=== PATIENT | female | born 1960 ===

== ENCOUNTER 2017-08-10 20:57 | Emergency (ER) | payer SELFPAY ==
[2017-08-10] MEDS ORDERED: Sodium Chloride 0.9% 1,000 ML IV ONE (21:26)
[2017-08-10 21:28] LABS: RBC URINE 4 /hpf (0-3); URINE BACTERIA MANY (<OCC); URINE BILIRUBIN NEGATIVE (NEGATIVE); URINE COLOR Yellow (YELLOW); URINE GLUCOSE (UA) NORMAL (Normal); URINE KETONE NEGATIVE (NEGATIVE); URINE LEUKOCYTE ESTERASE 3+ Leu/uL (Negative); URINE PROTEIN NEGATIVE (NEGATIVE); URINE UROBILINOGEN NORMAL mg/dL (0.2-1.0); WBC URINE 41 /hpf (0-5)
[2017-08-10 21:29] LABS: URINE BLOOD 1+ (NEGATIVE)
[2017-08-10] MEDS ORDERED: Sodium Chloride 0.9% 1,000 ML ONE (21:32)
[2017-08-10 21:47] LABS: BASO % 0.3 % (0.0-2.0); HEMATOCRIT 44.4 % (34.0-47.0); LYMPH # 2.1 K/uL (1.0-4.3); LYMPH % 12.6 % (20.0-40.0); MEAN CELL VOLUME 87.4 fL (81.0-99.0); MEAN CORPUSCULAR HEMOGLOBIN 28.3 pg (27.0-31.0); MEAN CORPUSCULAR HGB CONC 32.3 g/dL (33.0-37.0); MEAN PLATELET VOLUME 9.4 fL (7.2-11.7); MONO # 1.1 K/uL (0.0-0.8); RED CELL DISTRIBUTION WIDTH 13.8 % (11.5-14.5); WHITE BLOOD COUNT 16.3 K/uL (4.8-10.8)
[2017-08-10 21:51] LABS: CHLORIDE 102 mmol/L (98-107); SODIUM 138 mmol/L (132-148)
[2017-08-10 21:52] LABS: POTASSIUM 4.2 mmol/L (3.6-5.2)
[2017-08-10 21:54] LABS: ALB/GLOB RATIO 1.2 (1.0-2.1); ALKALINE PHOSPHATASE 71 U/L (38-126); ALT/SGPT 42 U/L (9-52); AST/SGOT 34 U/L (14-36); BILIRUBIN,TOTAL 1.6 mg/dL (0.2-1.3); BLOOD UREA NITROGEN 10 mg/dL (7-17); CARBON DIOXIDE 21 mmol/L (22-30); GFR AFRICAN-AMERICAN > 60; GLUCOSE,RANDOM 103 mg/dL (65-105)
[2017-08-10] MEDS ORDERED: cefTRIAXone IV 1 gm in Dextros 50 ML IVPB STA (23:03)
[2017-08-10] MEDS ORDERED: cefTRIAXone IV 1 gm in Dextros 50 ML IVPB ONE (23:14)
--- NOTE | 2017-08-10 23:29 | C.PDOC ---
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: language barrier Onset/Duration Of Symptoms: Days (1) Current Symptoms Are (Timing): Still Present Severity: Moderate Location Of Pain/Discomfort: Diffuse Quality Of Discomfort: Unable To Describe, "Pain" Associated Symptoms: Fever (subjective), Nausea, Other (Headache) Exacerbating Factors: None Alleviating Factors: None Additional History Per: Prior Records Abnormal Vaginal Bleeding: No Past Medical History Reviewed: Historical Data, Nursing Documentation, Vital Signs Vital Signs: Last Vital Signs Temp 98.9 F 08/10/17 21:07 Pulse 89 08/10/17 21:07 Resp 20 08/10/17 21:07 BP 128/89 08/10/17 21:07 Pulse Ox 98 08/10/17 21:07 - Medical History PMH: No Chronic Diseases Surgical History: Cholecystectomy Family History: States: Unknown Family Hx - Social History Hx Alcohol Use: No Hx Substance Use: No - Immunization History Hx Tetanus Toxoid Vaccination: No Hx Influenza Vaccination: No Hx Pneumococcal Vaccination: No Review Of Systems Except As Marked, All Systems Reviewed And Found Negative. Constitutional: Positive for: Fever, Malaise ENT: Negative for: Nose Congestion, Throat Pain Cardiovascular: Negative for: Chest Pain Respiratory: Negative for: Cough, Shortness of Breath Gastrointestinal: Positive for: Nausea, Abdominal Pain. Negative for: Vomiting , Diarrhea Genitourinary: Negative for: Dysuria Musculoskeletal: Negative for: Neck Pain, Back Pain Skin: Negative for: Rash Neurological: Positive for: Headache. Negative for: Weakness, Numbness, Seizures, Altered Mental Status Physical Exam - Physical Exam Appears: Non-toxic, No Acute Distress Skin: Normal Color, Warm, Dry, No Rash Head: Atraumatic, Normacephalic Eye(s): bilateral: Normal Inspection, PERRL, EOMI Neck: Normal ROM, Supple Chest: Symmetrical Cardiovascular: Rhythm Regular Respiratory: Normal Breath Sounds, No Accessory Muscle Use Gastrointestinal/Abdominal: Soft, Tenderness (nonspecific), No Distention, No Guarding, No Rebound Back: No CVA Tenderness Extremity: Normal ROM Neurological/Psych: Oriented x3, Normal Motor, Normal Sensation ED Course And Treatment - Laboratory Results Result Diagrams: 08/10/17 21:40 08/10/17 21:40 Lab Interpretation: Abnormal Interpretation Of Abnormal: UTI, urine C&S sent. O2 Sat by Pulse Oximetry: 98 Pulse Ox Interpretation: Normal Progress - Interventions Interventions:: Observation, Intravenous fluid - Medications Administered Intravenous: Antiemetic, H-2 tim - Data Reviewed Data Reviewed: Lab, Old records - Patient Status Patient status: Mostly improved - Continuity of Care Discussed patient case with:: Patient, ED Nurse - Patient Plan Patient Plan: Discharge, F/U with PCP Disposition Counseled Patient/Family Regarding: Studies Performed, Diagnosis, Need For Followup, Rx Given - Disposition Referrals: [facility] [Outside] Disposition: HOME/ ROUTINE Disposition Time: 23:29 Condition: IMPROVED Additional Instructions: Drink plenty of fluids. Follow up in the clinic for further evaluation and treatment. Return to the ER if you develop high fever, vomiting, lethargy, worsening of symptoms or if you have any other concerns. Prescriptions: Ciprofloxacin [Cipro] 1 tab PO BID #14 tab Instructions: Urinary Tract Infection in Women (ED) Forms: [employer] (Cambodian) Print Language: HUNGARIAN - Clinical Impression Clinical Impression: UTI (urinary tract infection)
[2017-08-10 23:51] VITALS: BP 105/66; PULSE 78; RESP 18; TEMP 98.3; O2SAT 97
== END 2017-08-10 23:50 | disposition home or self-care (01) ==
LOC: C.ER 20:57
DX: N39.0 Urinary tract infection, site not specified (principal)
CPT/HCPCS: 80053; 81001; 83690; 85025; 87086; 87181; 96361; 96374; 96375; 99284; J2765; J7040

== ENCOUNTER 2018-05-26 13:25 | Observation (INO) | payer MEDICAID ==
[2018-05-26] MEDS ORDERED: Labetalol 25mg/5ml Syringe IVP STA (13:43)
--- NOTE | 2018-05-26 13:49 | C.PDOC ---
History Of Present Illness 58 year old female presents to the emergency department with complaints of headache, abdominal pain, and nausea for the past three days. Patient states that her "BP is elevated", and she reports that she is not taking any medications at this time. Patient denies fever, or any other complaints. Time Seen by Provider: 05/26/18 13:36 Chief Complaint (Nursing): High Blood Pressure History Per: Patient History/Exam Limitations: no limitations Onset/Duration Of Symptoms: Days (3) Current Symptoms Are (Timing): Still Present Associated Symptoms: Headache, Other (abdominal pain, nausea) Past Medical History Reviewed: Historical Data, Nursing Documentation, Vital Signs Vital Signs: Last Vital Signs Temp 98 F 05/26/18 19:48 Pulse 64 05/26/18 19:48 Resp 18 05/26/18 19:48 BP 133/91 H 05/26/18 19:48 Pulse Ox 98 05/26/18 19:48 - Medical History PMH: HTN Surgical History: Cholecystectomy Family History: States: No Known Family Hx - Social History Hx Alcohol Use: No Hx Substance Use: No - Immunization History Hx Tetanus Toxoid Vaccination: No Hx Influenza Vaccination: No Hx Pneumococcal Vaccination: No Review Of Systems Except As Marked, All Systems Reviewed And Found Negative. Constitutional: Negative for: Fever Gastrointestinal: Positive for: Nausea, Abdominal Pain Neurological: Positive for: Headache Physical Exam - Physical Exam Appears: Non-toxic, No Acute Distress Skin: Warm, Dry Head: Atraumatic, Normacephalic Eye(s): bilateral: Normal Inspection Nose: Normal Neck: Normal, Supple Chest: Symmetrical Cardiovascular: Rhythm Regular, No Murmur Respiratory: Normal Breath Sounds, No Rales, No Rhonchi, No Wheezing Gastrointestinal/Abdominal: Soft, Tenderness (epigastric), Other (morbidly obese ) Neurological/Psych: Oriented x3, Normal Speech, Normal Cognition ED Course And Treatment - Laboratory Results Result Diagrams: 05/26/18 14:24 05/26/18 14:24 ECG Rhythm: Sinus Rhythm (65bpm), Nonspecific Changes ECG Interpretation: Abnormal Interpretation Of ECG: abnormal EKG, no prior EKG for comparison O2 Sat by Pulse Oximetry: 95 (RA) Pulse Ox Interpretation: Normal Medical Decision Making Medical Decision Making: Plan: EKG CMP Lipase Troponin CBC PTT Prothrombin Time Protonix 40mg IVP Trandate 20mg IVP Tylenol 975mg PO Zofran 4mg IVP Urinalysis ro hypertensive urgency vs emergency vs intracranial pathology- labs imaging pending 1600: pt reassesed abd soft no ttp. noted lateral ekg changes. dr javed bedside accepts case for obs. Disposition - Disposition Disposition: HOSPITALIZED Disposition Time: 04:00 Condition: STABLE - Clinical Impression Clinical Impression: Hypertension, Headache, Abnormal EKG - Scribe Statement The provider has reviewed the documentation as recorded by the Scribe (William Tamiko) Provider Attestation: All medical record entries made by the Scribe were at my direction and personally dictated by me. I have reviewed the chart and agree that the record accurately reflects my personal performance of the history, physical exam, medical decision making, and the department course for this patient. I have also personally directed, reviewed, and agree with the discharge instructions and disposition. Decision To Admit - Pt Status Changed To: Hospital Disposition Of: Observation - . Bed Request Type: Telemetry Admitting Physician: Kevin Javed Patient Diagnosis: Hypertension, Headache, Abnormal EKG
[2018-05-26] MEDS ORDERED: Labetalol 25mg/5ml Syringe ONE (14:11)
[2018-05-26 14:28] LABS: BASO # 0.1 K/uL (0.0-0.2); BASO % 1.1 % (0.0-2.0); EOS # 0.4 K/uL (0.0-0.7); EOS % 7.7 % (0.0-4.0); HEMOGLOBIN 13.9 g/dL (11.0-16.0); LYMPH # 2.3 K/uL (1.0-4.3); LYMPH % 40.8 % (20.0-40.0); MEAN CELL VOLUME 84.7 fL (81.0-99.0); MEAN CORPUSCULAR HEMOGLOBIN 28.5 pg (27.0-31.0); MEAN CORPUSCULAR HGB CONC 33.7 g/dL (33.0-37.0); MEAN PLATELET VOLUME 9.8 fL (7.2-11.7); MONO # 0.5 K/uL (0.0-0.8); MONO % 9.5 % (0.0-10.0); NEUT # 2.3 K/uL (1.8-7.0); NEUT % 40.9 % (50.0-75.0); RBC 4.88 Mil/uL (3.80-5.20); RED CELL DISTRIBUTION WIDTH 14.4 % (11.5-14.5); WHITE BLOOD COUNT 5.7 K/uL (4.8-10.8)
[2018-05-26 14:36] LABS: INR 0.9
[2018-05-26 14:39] LABS: ALB/GLOB RATIO 1.4 (1.0-2.1); ALBUMIN 4.5 g/dL (3.5-5.0); ALT/SGPT 39 U/L (9-52); AST/SGOT 32 U/L (14-36); BLOOD UREA NITROGEN 14 mg/dL (7-17); GFR AFRICAN-AMERICAN > 60; GFR NON-AFRICAN AMERICAN > 60; LIPASE 89 U/L (23-300)
[2018-05-26 15:56] LABS: SQUAMOUS EPITHIAL < 1 /hpf (0-5); URINE BACTERIA MOD (<OCC); URINE BILIRUBIN NEGATIVE (NEGATIVE); URINE BLOOD NEGATIVE (NEGATIVE); URINE CLARITY Clear (Clear); URINE COLOR Straw (YELLOW); URINE GLUCOSE (UA) NORMAL (Normal); URINE LEUKOCYTE ESTERASE 1+ Leu/uL (Negative); URINE PROTEIN NEGATIVE (NEGATIVE); URINE UROBILINOGEN NORMAL mg/dL (0.2-1.0)
--- NOTE | 2018-05-26 16:11 | RAD ---
HISTORY: Abdominal pain COMPARISON: No prior. FINDINGS: LUNGS: Poor inspiration with low lung volumes, crowded bronchovascular markings and mild bibasilar atelectasis. PLEURA: No significant pleural effusion identified, no pneumothorax apparent. CARDIOVASCULAR: Heart size appears enlarged OSSEOUS STRUCTURES: No significant abnormalities. VISUALIZED UPPER ABDOMEN: Normal. OTHER FINDINGS: None. IMPRESSION: No active disease.
--- NOTE | 2018-05-26 16:14 | CT ---
PROCEDURE: CT HEAD WITHOUT CONTRAST. HISTORY: Headache COMPARISON: No prior TECHNIQUE: Axial computed tomography images were obtained through the head/brain without intravenous contrast. Radiation dose: Total exam DLP = 804.97 mGy-cm. This CT exam was performed using one or more of the following dose reduction techniques: Automated exposure control, adjustment of the mA and/or kV according to patient size, and/or use of iterative reconstruction technique. FINDINGS: HEMORRHAGE: No acute parenchymal, subarachnoid nor extra-axial hemorrhage. BRAIN: No evidence of large acute infarct. Suspect minimal chronic periventricular white matter ischemic changes. Small elliptical shaped low-attenuation focus within the inferior aspect right basal ganglia could represent dilated perivascular space or benign neuroglial cyst. Mild generalized volume loss Minimal vascular calcifications both carotid siphons VENTRICLES: No obstructive hydrocephalus. CALVARIUM: Unremarkable. PARANASAL SINUSES: Unremarkable as visualized. No significant inflammatory changes. MASTOID AIR CELLS: Mastoid air complexes are somewhat sclerotic and underpneumatized all though otherwise clear. OTHER FINDINGS: None. IMPRESSION: No evidence of large acute infarct. Suspect minimal chronic periventricular white matter ischemic changes. Small elliptical shaped low-attenuation focus within the inferior aspect right basal ganglia could represent dilated perivascular space or benign neuroglial cyst. Mild generalized volume loss
[2018-05-26] MEDS ORDERED: Alum-Mag Hydrox-Simethicone Susp (30 mL) PO ONE (16:30)
[2018-05-26 18:07] LABS: BARBITURATES, UR NEGATIVE (NEGATIVE); BENZODIAZEPINES, UR NEGATIVE (NEGATIVE); OPIATES, UR NEGATIVE (NEGATIVE); PHENCYCLIDINE, UR NEGATIVE (NEGATIVE)
[2018-05-26 18:10] LABS: CK-MB 1.29 ng/mL (0.0-3.38)
--- NOTE | 2018-05-26 23:27 | CP.PCM.HP ---
Past Patient History - Infectious Disease Hx of Infectious Diseases: None - Past Social History Smoking Status: Never Smoked - CARDIAC Hx Hypertension: Yes - PSYCHIATRIC Hx Substance Use: No - SURGICAL HISTORY Hx Cholecystectomy: Yes - ANESTHESIA Hx Anesthesia: Yes Hx Anesthesia Reactions: No Meds Allergies/Adverse Reactions: Allergies Allergy/AdvReac Type Severity Reaction Status Date / Time Penicillins Allergy Verified 08/10/17 23:18 Results - Vital Signs Recent Vital Signs: Last Vital Signs Temp 98 F 05/26/18 19:48 Pulse 64 05/26/18 19:48 Resp 18 05/26/18 19:48 BP 128/83 05/26/18 21:49 Pulse Ox 95 05/26/18 20:39 - Labs Result Diagrams: 05/26/18 14:24 05/26/18 14:24 Labs: Laboratory Results - last 24 hr 05/26/18 05/26/18 05/26/18 14:24 14:24 14:24 WBC 5.7 D RBC 4.88 Hgb 13.9 Hct 41.3 MCV 84.7 D MCH 28.5 MCHC 33.7 RDW 14.4 Plt Count 244 MPV 9.8 Neut % (Auto) 40.9 L Lymph % (Auto) 40.8 H [place] % (Auto) 9.5 Eos % (Auto) 7.7 H Baso % (Auto) 1.1 Neut # (Auto) 2.3 Lymph # (Auto) 2.3 [place] # (Auto) 0.5 Eos # (Auto) 0.4 Baso # (Auto) 0.1 PT 10.0 INR 0.9 APTT 34 Sodium 142 Potassium 4.4 Chloride 104 Carbon Dioxide 28 Anion Gap 14 BUN 14 Creatinine 0.8 Est GFR ( Amer) > 60 Est GFR (Non-Af Amer) > 60 Random Glucose 99 Calcium 10.0 Total Bilirubin 1.0 AST 32 ALT 39 Alkaline Phosphatase 93 Total Creatine Kinase CK-MB (Mass) Troponin I < 0.0120 Total Protein 7.9 Albumin 4.5 Globulin 3.3 Albumin/Globulin Ratio 1.4 Lipase 89 Urine Color Urine Clarity Urine pH Ur Specific [place] Urine Protein Urine Glucose (UA) Urine Ketones Urine Blood Urine Nitrate Urine Bilirubin Urine Urobilinogen Ur Leukocyte Esterase Urine WBC (Auto) Urine RBC (Auto) Ur Squamous Epith Cells Urine Bacteria Urine Opiates Screen Urine Methadone Screen Ur Barbiturates Screen Ur Phencyclidine Scrn Ur Amphetamines Screen U Benzodiazepines Scrn U Oth Cocaine Metabols U Cannabinoids Screen 05/26/18 05/26/18 05/26/18 15:42 17:38 17:45 WBC RBC Hgb Hct MCV MCH MCHC RDW Plt Count MPV Neut % (Auto) Lymph % (Auto) [place] % (Auto) Eos % (Auto) Baso % (Auto) Neut # (Auto) Lymph # (Auto) [place] # (Auto) Eos # (Auto) Baso # (Auto) PT INR APTT Sodium Potassium Chloride Carbon Dioxide Anion Gap BUN Creatinine Est GFR ( Amer) Est GFR (Non-Af Amer) Random Glucose Calcium Total Bilirubin AST ALT Alkaline Phosphatase Total Creatine Kinase 130 CK-MB (Mass) 1.29 Troponin I < 0.0120 Total Protein Albumin Globulin Albumin/Globulin Ratio Lipase Urine Color Straw Urine Clarity Clear Urine pH 7.0 Ur Specific [place] 1.008 Urine Protein Negative Urine Glucose (UA) Normal Urine Ketones Negative Urine Blood Negative Urine Nitrate Negative Urine Bilirubin Negative Urine Urobilinogen Normal Ur Leukocyte Esterase 1+ H Urine WBC (Auto) 6 H Urine RBC (Auto) < 1 Ur Squamous Epith Cells < 1 Urine Bacteria Mod H Urine Opiates Screen Negative Urine Methadone Screen Negative Ur Barbiturates Screen Negative Ur Phencyclidine Scrn Negative Ur Amphetamines Screen Negative U Benzodiazepines Scrn Negative U Oth Cocaine Metabols Negative U Cannabinoids Screen Negative
[2018-05-27 00:08] VITALS: RESP 20
[2018-05-27 00:45] LABS: CK-MB 0.95 ng/mL (0.0-3.38)
--- NOTE | 2018-05-27 04:53 | CON ---
DATE: 05/26/2018 CARDIOLOGY CONSULTATION REASON FOR CONSULTATION: Abnormal EKG. HISTORY OF PRESENT ILLNESS: The patient is a 58-year-old female, who has history of hypertension, has a history of cholecystectomy in the past. She presents with abdominal pain and what she described as elevated blood pressure and she felt headache. The patient denies any retrosternal chest pain and is unaware of any history of heart attack in the past. The patient did complain of nausea, but no vomiting. SOCIAL HISTORY: Nonsmoker, nondrinker. MEDICATIONS: Cozaar 50 mg daily, Crestor 10 mg once a day, aspirin 81 mg once a day, Pepcid 40 mg p.o. once a day. REVIEW OF SYSTEMS: No vomiting. The patient did experience nausea. No diarrhea and no fever or chills. PHYSICAL EXAMINATION: GENERAL: The patient is a middle-aged female, who does not appear to be in acute distress. VITAL SIGNS: Blood pressure initially was 203/114, heart rate 69, temperature 98.4, respirations 20. HEENT: Normocephalic. CHEST: Clear. HEART: S1 and S2, regular. ABDOMEN: Soft. EXTREMITIES: No edema. No calf tenderness. LABORATORY DATA: SMA-7 is entirely within normal limits. One set of troponin is negative. Hemoglobin, hematocrit, white count, and platelet count are within normal limits. PT/PTT and INR are within normal limits. DIAGNOSTIC IMAGING: EKG revealed sinus rhythm at rate of 65, consider lateral ischemic T-wave changes. Head CT scan without contrast, no evidence of large acute infarct. Suspect minimal chronic periventricular white matter ischemic changes. Small epileptic L-shaped low attenuation focus within the inferior aspect of the right basal ganglia could represent dilated perivascular space or benign neuroglial cyst. ASSESSMENT: 1. Abnormal EKG with evidence of lateral ischemia, rule out myocardial infarction. 2. Uncontrolled hypertension. RECOMMENDATIONS: Continue Cozaar 50 mg once a day, Crestor 10 mg once a day, aspirin 81 mg once a day, Pepcid 20 mg once a day. Schedule the patient for an echocardiogram. Obtain urine for drug screen. Robe Beatty MD [facility] # [id number]
--- NOTE | 2018-05-27 09:45 | HP ---
CHIEF COMPLAINT: Dizziness, headache, palpitation. SUBJECTIVE: This is a 58-year-old female who is a poor historian. She has a prior history of hypertension. She is noncompliant with diet, medications, and followup. Over the last few days, she has been having headache, abdominal pain, nausea, palpitation, weakness, dizziness, and the patient came to emergency room. She was found to have a very high blood pressure, and she is admitted. She denies any history of seizure-like activity. She denies any chest pain. She has palpitations. She denies any history of loss of consciousness. She denies any history of polyuria, polydipsia, polyphagia. She denies any history of hematuria or pyuria. There is no history of sneezing, itchy eyes, or itchy nose. There is no history of joint pain. PAST MEDICAL HISTORY: Hypertension. SOCIAL HISTORY: Nonsmoker, non-ETOH user. CURRENT MEDICATIONS: Unknown. PHYSICAL EXAMINATION: GENERAL: Middle-aged female in no distress. VITAL SIGNS: Blood pressure initially 218/118, pulse 61, respiratory rate 20, temperature 98. SKIN: No bruises. No purpura. No petechiae. HEENT: Atraumatic, normocephalic. Negative pallor. Negative jaundice. Extraocular movements are intact. NECK: Supple. No JVD. LUNGS: Bilaterally clear. No rales. No rhonchi. CVS: S1 and S2 regular. No heave noted. ABDOMEN: Soft, nontender. Bowel sounds are positive. RECTAL: No masses. No bleed. EXTREMITIES: No clubbing, cyanosis, or edema. 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 ASSESSMENT: Uncontrolled hypertension. PLAN: Admit. Detailed orders written. Seen and examined. Kevin Javed MD
[2018-05-27 16:22] VITALS: BP 150/88; PULSE 68; TEMP 98.5; O2SAT 96
--- NOTE | 2018-05-27 23:34 | CP.PCM.DIS ---
Provider - Provider Date of Admission: 05/26/18 16:13 Attending physician: Kevin Javed MD Hospital Course - Lab Results Lab Results: Most Recent Lab Values WBC 5.7 K/uL (4.8-10.8) D 05/26/18 14:24 RBC 4.88 Mil/uL (3.80-5.20) 05/26/18 14:24 Hgb 13.9 g/dL (11.0-16.0) 05/26/18 14:24 Hct 41.3 % (34.0-47.0) 05/26/18 14:24 MCV 84.7 fL (81.0-99.0) D 05/26/18 14:24 MCH 28.5 pg (27.0-31.0) 05/26/18 14:24 MCHC 33.7 g/dL (33.0-37.0) 05/26/18 14:24 RDW 14.4 % (11.5-14.5) 05/26/18 14:24 Plt Count 244 K/uL (130-400) 05/26/18 14:24 MPV 9.8 fL (7.2-11.7) 05/26/18 14:24 Neut % (Auto) 40.9 % (50.0-75.0) L 05/26/18 14:24 Lymph % (Auto) 40.8 % (20.0-40.0) H 05/26/18 14:24 [place] % (Auto) 9.5 % (0.0-10.0) 05/26/18 14:24 Eos % (Auto) 7.7 % (0.0-4.0) H 05/26/18 14:24 Baso % (Auto) 1.1 % (0.0-2.0) 05/26/18 14:24 Neut # (Auto) 2.3 K/uL (1.8-7.0) 05/26/18 14:24 Lymph # (Auto) 2.3 K/uL (1.0-4.3) 05/26/18 14:24 [place] # (Auto) 0.5 K/uL (0.0-0.8) 05/26/18 14:24 Eos # (Auto) 0.4 K/uL (0.0-0.7) 05/26/18 14:24 Baso # (Auto) 0.1 K/uL (0.0-0.2) 05/26/18 14:24 PT 10.0 SECONDS (9.7-12.2) 05/26/18 14:24 INR 0.9 05/26/18 14:24 APTT 34 SECONDS (21-34) 05/26/18 14:24 Sodium 142 mmol/L (132-148) 05/26/18 14:24 Potassium 4.4 mmol/L (3.6-5.2) 05/26/18 14:24 Chloride 104 mmol/L (98-107) 05/26/18 14:24 Carbon Dioxide 28 mmol/L (22-30) 05/26/18 14:24 Anion Gap 14 (10-20) 05/26/18 14:24 BUN 14 mg/dL (7-17) 05/26/18 14:24 Creatinine 0.8 mg/dL (0.7-1.2) 05/26/18 14:24 Est GFR ( Amer) > 60 05/26/18 14:24 Est GFR (Non-Af Amer) > 60 05/26/18 14:24 Random Glucose 99 mg/dL (65-105) 05/26/18 14:24 Calcium 10.0 mg/dl (8.6-10.4) 05/26/18 14:24 Total Bilirubin 1.0 mg/dL (0.2-1.3) 05/26/18 14:24 AST 32 U/L (14-36) 05/26/18 14:24 ALT 39 U/L (9-52) 05/26/18 14:24 Alkaline Phosphatase 93 U/L (38-126) 05/26/18 14:24 Total Creatine Kinase 136 U/L (30-135) H 05/27/18 00:17 CK-MB (Mass) 0.95 ng/mL (0.0-3.38) 05/27/18 00:17 Troponin I < 0.0120 ng/mL (0.00-0.120) 05/27/18 00:17 Total Protein 7.9 g/dL (6.3-8.3) 05/26/18 14:24 Albumin 4.5 g/dL (3.5-5.0) 05/26/18 14:24 Globulin 3.3 gm/dL (2.2-3.9) 05/26/18 14:24 Albumin/Globulin Ratio 1.4 (1.0-2.1) 05/26/18 14:24 Lipase 89 U/L (23-300) 05/26/18 14:24 Urine Color Straw (YELLOW) 05/26/18 15:42 Urine Clarity Clear (Clear) 05/26/18 15:42 Urine pH 7.0 (5.0-8.0) 05/26/18 15:42 Ur Specific [place] 1.008 (1.003-1.030) 05/26/18 15:42 Urine Protein Negative mg/dL (NEGATIVE) 05/26/18 15:42 Urine Glucose (UA) Normal mg/dL (Normal) 05/26/18 15:42 Urine Ketones Negative mg/dL (NEGATIVE) 05/26/18 15:42 Urine Blood Negative (NEGATIVE) 05/26/18 15:42 Urine Nitrate Negative (NEGATIVE) 05/26/18 15:42 Urine Bilirubin Negative (NEGATIVE) 05/26/18 15:42 Urine Urobilinogen Normal mg/dL (0.2-1.0) 05/26/18 15:42 Ur Leukocyte Esterase 1+ [place]/uL (Negative) H 05/26/18 15:42 Urine WBC (Auto) 6 /hpf (0-5) H 05/26/18 15:42 Urine RBC (Auto) < 1 /hpf (0-3) 05/26/18 15:42 Ur Squamous Epith Cells < 1 /hpf (0-5) 05/26/18 15:42 Urine Bacteria Mod (<OCC) H 05/26/18 15:42 Urine Opiates Screen Negative (NEGATIVE) 05/26/18 17:45 Urine Methadone Screen Negative (NEGATIVE) 05/26/18 17:45 Ur Barbiturates Screen Negative (NEGATIVE) 05/26/18 17:45 Ur Phencyclidine Scrn Negative (NEGATIVE) 05/26/18 17:45 Ur Amphetamines Screen Negative (NEGATIVE) 05/26/18 17:45 U Benzodiazepines Scrn Negative (NEGATIVE) 05/26/18 17:45 U Oth Cocaine Metabols Negative (NEGATIVE) 05/26/18 17:45 U Cannabinoids Screen Negative (NEGATIVE) 05/26/18 17:45 Discharge Plan - Follow Up Plan Condition: STABLE Disposition: HOME/ ROUTINE Instructions: High Blood Pressure (DC), Headache, Adult (DC), Aspirin, Losartan , Rosuvastatin
[2018-05-28] MEDS ORDERED: Pneumococcal 23-Valent Vaccine IM ONE (10:00)
--- NOTE | 2018-05-29 07:10 | PN ---
DATE: 05/27/2018 SUBJECTIVE: This was for yesterday 05/27/2018 as the dictation for yesterday was not transmitted correctly. The patient's renal function is obtained. No abdominal pain or shortness of breath. PHYSICAL EXAMINATION: VITAL SIGNS: Blood pressure 150/68, heart rate , temperature 98.5, and respirations 20. HEENT: Normocephalic. CHEST: Clear. HEART: S1 and S2 regular. EXTREMITIES: No edema. LABORATORY DATA: Two sets of free troponins are within normal limits. Urine drug screen is negative. ASSESSMENT: 1. Lateral ischemic EKG changes, myocardial infarction is ruled out. 2. Hypertension. RECOMMENDATIONS: Continue current Cozaar, Crestor, and aspirin. Await echocardiographic study. Robe Beatty MD
== END 2018-05-27 16:45 | disposition home or self-care (01) ==
LOC: C.ER 13:25 → C.9E 16:13 → C.6T 19:02
PROVIDERS: ADMIT Internal Medicine; ATTEND Internal Medicine
DX: I10 Essential (primary) hypertension (principal); Z91.11 Patient's noncompliance with dietary regimen; Z91.14 Patient's other noncompliance with medication regimen; R94.31 Abnormal electrocardiogram [ECG] [EKG]
CPT/HCPCS: 36415; 70450; 71045; 80053; 80324; 80345; 80346; 80349; 80353; 80358; 80361; 81001; 83690; 83992; 84484; 85025; 85610; 85730; 96374; 96375; 99285; C9113; G0378; J2405

== ENCOUNTER 2018-06-10 13:20 | Emergency (ER) | payer OTHER, MEDICAID ==
[2018-06-10 13:37] VITALS: BP 118/79; PULSE 70; TEMP 98; O2SAT 96
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
[2018-06-10 14:27] VITALS: RESP 16
--- NOTE | 2018-06-10 15:33 | RAD ---
Date of service: 06/10/2018 PROCEDURE: Radiographs of the Lumbar Spine. HISTORY: injury COMPARISON: No prior. FINDINGS: BONES: Slight straightening of the upper lumbar curvature without fracture or spondylolisthesis identified. Vertebral bodies are normal in height as well as disc interspaces grossly. Subtle scoliotic deformity appreciated. No destructive bony lesion appreciable. Incidental note is made of possible right renal calculus. Soft tissue calcification in the inferior pelvis likely reflect vascular calcifications. DISC SPACES: As above. OTHER FINDINGS: None. IMPRESSION: No fracture or spondylolisthesis. Slight straightening of the upper lumbar curvature may be a function of mildly scoliotic deformity. Incidental right intrarenal calculus suggested.
== END 2018-06-10 14:26 | disposition home or self-care (01) ==
LOC: C.ER 13:20
DX: S33.5XXA Sprain of ligaments of lumbar spine, initial encounter (principal); V48.6XXA Car passenger injured in noncollision transport accident in traffic accident, initial encounter